=== PATIENT | female | born 1985 | race Caucasian/White ===

== ENCOUNTER 2020-11-04 21:59 | Emergency (ER) | payer BC, SELFPAY ==
--- NOTE | ~2020-11-04 | CT_ITS ---
EXAMINATION: CT abdomen pelvis w con DATE: 11/05/2020 00:36 INDICATION: Abdominal pain. TECHNIQUE: Computed tomography (CT) of the abdomen and pelvis was performed with 100 mL Omnipaque 350 intravenous contrast. Automated exposure control and iterative reconstruction technique were employe d. The dose-length product was 963.16 mGy-cm. COMPARISON: None. FINDINGS: The visualized portions of the lung bases demonstrate minimal atelectasis on the left. No p leural effusion. The heart size is normal. No pericardial effusion. The liver, gallbladder, spleen, p ancreas, adrenal glands, and right kidney are normal. There is a 4 mm stone in left kidney. There are changes of gastric bypass procedure. There are no dilated loops of bowel. The appendix is normal. Th ere are no pathologically enlarged lymph nodes. There is no free intraperitoneal fluid. There is mild thoracic spondylosis and moderate lumbar spondylosis. IMPRESSION: 1. No etiology for the patient's symptoms. Reviewed, dictated and finalized at location A.
[2020-11-04 22:05] VITALS: BP 126/57; PULSE 63; RESP 16; TEMP 36.1; O2SAT 100
--- NOTE | 2020-11-04 22:08 | PC.NURSE ---
pt given warm blanket to cover up with in waiting room.
[2020-11-04] MEDS: ONDANSETRON INJ 4 MG/2 ML VIAL IV PUSH (22:47)
[2020-11-04] MEDS: SODIUM CHLORIDE 0.9% IV 1,000 ML 999 ML IV CONT (22:47)
[2020-11-04 22:58] LABS: Alanine Aminotransferase 15 U/L (4-35); Albumin Level 3.9 g/dL (3.5-5.1); Alkaline Phosphatase 54 U/L (38-126); Anion Gap 12 mmol/L (8-16); Aspartate Amino Transferase 26 U/L (14-36); Bilirubin,Total 0.4 mg/dL (0.2-1.3); Blood Urea Nitrogen 19 mg/dL (7-17); Calcium 8.4 mg/dL (8.4-10.2); Carbon Dioxide 17 mmol/L (22-30); Chloride 106 mmol/L (98-107); Estimated Glomerular Filt Rate > 60; Glucose 82 mg/dL (65-105); Lipase 64 U/L (23-300); Potassium 3.8 mmol/L (3.4-5.0); Sodium 135 mmol/L (137-145)
--- NOTE | 2020-11-04 23:31 | ED.GENADULT ---
HPI - General Adult General Chief complaint: Abdominal Pain Stated complaint: abd pain, n/v Time Seen by Provider: 11/04/20 22:23 History of Present Illness HPI narrative: Patient is a 35-year-old female that presents to the emergency department with chief complaint of nausea vomiting and abdominal pain. Patient reports that she has history of a gastric bypass and reports that her abdomen is cramping. Patient states the pain is not improved by anything nor is it worsened by anything. The patient denies fever states that she has had some hard stools and have been pellet-like stools recently. Review of Systems Review of Systems: Narrative: A 10 system review of systems was completed on the patient and is negative except for what is stated in the HPI. Nursing and ancillary documentation was reviewed. PMFSH Comments Past medical history significant for gastric bypass Social history the patient denies illicit drug use Exam Narrative: Exam Narrative: GENERAL: Well-appearing, well-nourished, and in no acute distress. HEAD: Normocephalic, atraumatic. EYES: PERRLA and EOMI. ENT: Nares clear, no rhinorrhea or epistaxis. Mucous membranes moist. NECK: Supple. CHEST: Clear to auscultation. No respiratory distress. HEART: Regular rate and rhythm. No murmur heard. Normal peripheral pulses. ABDOMEN: Soft, diffuse mild tenderness to palpation, nondistended, normal active bowel sounds. EXTREMITIES: Normal range of motion. No edema. SKIN: Warm, dry, no rash. NEURO: No focal deficits. Alert and oriented x3. PSYCH: Normal mood and affect. Course Vital Signs Vital signs: Vital Signs Temperature 36.1 C L 11/04/20 22:05 Pulse Rate 63 11/04/20 22:05 Respiratory Rate 16 11/04/20 22:05 Blood Pressure 126/57 L 11/04/20 22:05 Pulse Oximetry 100 11/04/20 22:05 Temperature 36.1 C L 11/04/20 22:05 Pulse Rate 69 11/05/20 00:54 Respiratory Rate 14 11/05/20 00:54 Blood Pressure 99/52 L 11/05/20 00:54 Pulse Oximetry 100 11/05/20 00:54 Medical Decision Making Vital Signs Vital Signs: Vital Signs Temperature 36.1 C L 11/04/20 22:05 Pulse Rate 63 11/04/20 22:05 Respiratory Rate 16 11/04/20 22:05 Blood Pressure 126/57 L 11/04/20 22:05 Pulse Oximetry 100 11/04/20 22:05 Temperature 36.1 C L 11/04/20 22:05 Pulse Rate 69 11/05/20 00:54 Respiratory Rate 14 11/05/20 00:54 Blood Pressure 99/52 L 11/05/20 00:54 Pulse Oximetry 100 11/05/20 00:54 Lab Data Result diagrams: 11/04/20 22:38 11/04/20 22:38 Labs: Lab Results 11/04/20 11/04/20 11/05/20 Range/Units 22:38 22:38 00:37 WBC Pending RBC Pending Hgb Pending Hct Pending MCV Pending MCH Pending MCHC Pending RDW Pending Plt Count Pending MPV Pending Immature Gran % (Auto) Pending Neut % (Auto) Pending Lymph % (Auto) Pending Park % (Auto) Pending Eos % (Auto) Pending Baso % (Auto) Pending Lymph # (Auto) Pending Park # (Auto) Pending Eos # (Auto) Pending Baso # (Auto) Pending Abs Immat Gran (auto) Pending Absolute Neuts (auto) Pending Absolute Nucleated RBC Pending Nucleated RBC % Pending Sodium 135 L (137-145) mmol/L Potassium 3.8 (3.4-5.0) mmol/L Chloride 106 (98-107) mmol/L Carbon Dioxide 17 L (22-30) mmol/L Anion Gap 12 (8-16) mmol/L BUN 19 H (7-17) mg/dL Creatinine 0.60 L (0.7-1.0) mg/dL Estim Creat Clear Calc Not Reportable Estimated GFR > 60 (59 - ) Glucose 82 (65-105) mg/dL Calcium 8.4 (8.4-10.2) mg/dL Total Bilirubin 0.4 (0.2-1.3) mg/dL AST 26 (14-36) U/L ALT 15 (4-35) U/L Alkaline Phosphatase 54 (38-126) U/L Total Protein 7.0 (6.3-8.2) g/dL Albumin 3.9 (3.5-5.1) g/dL Lipase 64 (23-300) U/L Urine Color Yellow (Yellow) Urine Appearance Cloudy H (Clear) Urin
[2020-11-05 00:54] VITALS: BP 99/52; PULSE 69; RESP 14; O2SAT 100
[2020-11-05 01:02] LABS: Add Urine Microscopic? YES; Appearance Urine Cloudy (Clear); Bacteria Urine 2+ /hpf; Bilirubin Urine Negative (Negative); Blood Urine Negative (Negative); Color Urine Yellow (Yellow); Glucose Urine UA Negative (Negative); Ketones Urine 1+ mg/dL (Negative); Leukocyte Esterase Ur 1+ LEU/UL (Negative); Mucus Urine Rare /lpf; Nitrate Urine Negative (Negative); Protein Urine Negative (Negative); RBC Urine 0-2 /hpf (0-2); Specific Grav Ur 1.018 (1.001-1.035); Squamous Epithelial Cell Urine Many /hpf (Few); Urobilinogen Urine Negative mg/dL (<2.0)
[2020-11-05 01:49] VITALS: BP 104/58; PULSE 77; RESP 16; O2SAT 97
--- NOTE | 2020-11-08 19:24 | PC.NURSE ---
*ns stop @ 2300LATE ENTRY This note is being entered to document information to the patient's record. The following information was omitted on [], by [].
== END 2020-11-05 01:57 | disposition home or self-care (01) ==
PROVIDERS: Emergency Medicine; Emergency Provider Emergency Medicine; PCP Family Medicine
DX: N30.00 Acute cystitis without hematuria (principal); R10.84 Generalized abdominal pain; Z98.84 Bariatric surgery status
CPT/HCPCS: 36415; 74177; 80053; 81001; 81025; 83690; 96374; 99284; J2405; J7030; Q9967